=== PATIENT | female | born 1990 | race Caucasian/White ===

== ENCOUNTER 2016-12-18 14:12 | Emergency (ER) | payer OTHER ==
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
[2016-12-18 14:20] VITALS: BP 117/76; PULSE 72; TEMP 98; BMI 21.9
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
== END 2016-12-18 15:09 | disposition home or self-care (01) ==
LOC: FER 14:12
DX: M54.2 Cervicalgia (principal); V43.52XA Car driver injured in collision with other type car in traffic accident, initial encounter; Y92.488 Other paved roadways as the place of occurrence of the external cause; Y93.89 Activity, other specified; Y99.8 Other external cause status
CPT/HCPCS: 99282-25